=== PATIENT | female | born 1950 | race Asian ===

== ENCOUNTER 2016-11-26 15:39 | Emergency (ER) | payer OTHER ==
[~2016-11-26] VITALS: Ht 160 cm; Wt 59.0 kg
[2016-11-26 15:40] VITALS: BP 152/87; PULSE 76; RESP 16; TEMP 98.5; O2SAT 98
--- NOTE | 2016-11-26 15:40 | NUR ---
Arrived with hard c-collar, placed in bed 8, notified. Pt ambulatory from EMS [facility] to ER [facility]
--- NOTE | 2016-11-26 15:42 | NUR ---
Dr. Chadwick at bedside for evaluation. Hard C-collar removed by ER . Pt able to move neck and bilat shoulders without difficulty.
--- NOTE | 2016-11-26 15:45 | NUR ---
Ambulatory to restroom with stready gait
--- NOTE | 2016-11-26 16:45 | NUR ---
Herberth dacosta in [facility] - 11/26/16 at 1709 by [facility] Ambulatory to restroom with stready gait
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
--- NOTE | 2016-11-26 17:06 | NUR ---
Patient given written and verbal discharge instructions and verbalizes understanding. ER MD discussed with patient the results and treatment provided. Patient in stable condition. ID arm band removed. Rx of motrin given. Patient educated on pain management and to follow up with PMD. Pain Scale 3/10. Opportunity for questions provided and answered.
--- NOTE | 2016-11-26 17:08 | NUR ---
[facility] at bedside
== END 2016-11-26 17:06 | disposition home or self-care (01) ==
LOC: SED 15:39
DX: S13.4XXA Sprain of ligaments of cervical spine, initial encounter (principal); V49.9XXA Car occupant (driver) (passenger) injured in unspecified traffic accident, initial encounter; Y93.89 Activity, other specified; Y92.89 Other specified places as the place of occurrence of the external cause; Y99.8 Other external cause status
CPT/HCPCS: 72040-TC; 99284